=== PATIENT | female | born 1935 | race Caucasian/White ===

== ENCOUNTER 2022-11-16 11:52 | Outpatient (CLI) | payer MEDICARE, OTHER ==
[~2022-11-16 11:52] MED LIST: Iopamidol 370 76% 100 ML VIAL ONE
== END 2022-11-16 11:53 | disposition home or self-care (01) ==
LOC: CSHCT 11:52
PROVIDERS: ATTEND Otolaryngology Plastic Surgery within the Head & Neck
DX: H81.4 Vertigo of central origin (principal)
CPT/HCPCS: 70496; 70498; 82565